=== PATIENT | male | born 1985 | race Caucasian/White ===

== ENCOUNTER 2019-05-17 11:26 | Inpatient (IN) | payer OTHER ==
[~2019-05-17] VITALS: Ht 193 cm; Wt 85.4 kg
[2019-06-09] VITALS (15 sets, daily range): BP systolic 111–133; BP diastolic 57–88; PULSE 66–99; TEMP 97.7–98.6
[2019-06-09 09:46] LABS: BASO % 0.8 % (0.0-2.0); EOS # 0.1 (0.0-0.7); EOS % 2.6 % (0-4.0); GRAN # 2.7 (1.4-6.5); GRAN % 70.1 % (42.2-75.2); HEMATOCRIT 41.3 % (42.0-52.0); HEMOGLOBIN 14.3 g/dl (13.5-18.0); LYMPH # 0.8 (1.2-3.4); LYMPH % 20.8 % (20.0-51.0); MEAN CELL VOLUME 84 fl (80.0-100.0); MEAN CORPUSCULAR HEMOGLOBIN 29 pg (27.0-31.0); MEAN CORPUSCULAR HGB CONC 35 g/dl (33.0-37.0); MEAN PLATELET VOLUME 10.5 fl (7.4-10.4); MONO # 0.2 (0.1-0.6); MONO % 5.7 % (1.7-9.3); PLATELET COUNT 59 K/mm3 (130-400); REDCELL DISTRIBUTION WIDTH-CV 13.7 % (11.5-14.5)
--- NOTE | 2019-06-09 10:05 | NUR ---
Platelet transfusion #1 started to 18 guage right forearm site at 60ml/hr. Pt tolerating without signs and symptoms of reaction. Will continue to monitor. in room. Nurse at bedside. Call light within reach.
--- NOTE | 2019-06-09 10:20 | NUR ---
Platelet transfusion #1 rate increased to wide open. No signs or symptoms of transfusion reaction. Will continue to monitor.
[2019-06-09] MEDS ORDERED: ELIQUIS 5MG PO (10:26)
--- NOTE | 2019-06-09 10:30 | NUR ---
Platlet transfusion #1 complete. VSS. No signs/symptoms of reaction. OR pest control specialist at bedside. Call light within reach.
--- NOTE | 2019-06-09 10:40 | NUR ---
Pt to OR via cart with Nena CORNELIUS.
[2019-06-09 17:03] LABS: MEAN CELL VOLUME 86 fl (80.0-100.0); MEAN CORPUSCULAR HGB CONC 34 g/dl (33.0-37.0); MEAN PLATELET VOLUME 10.4 fl (7.4-10.4); PLATELET COUNT 154 K/mm3 (130-400); RED BLOOD COUNT 4.12 M/mm3 (4.20-5.60)
[2019-06-09 17:10] LABS: HEMATOCRIT 35.3 % (42.0-52.0); MEAN CORPUSCULAR HEMOGLOBIN 29 pg (27.0-31.0)
[2019-06-09 17:12] LABS: HEMOGLOBIN 12.1 g/dl (13.5-18.0)
--- NOTE | 2019-06-09 18:30 | NUR ---
Patient has been resting well since getting back from surgery. Stated having some pain and pressure from his abdomen to his upper shoulders. Explained this is part of the surgery from the air they use during surgery in the abdomen. He verbalized understanding. He is tolerating clear liquids without nausea. His was here but went home for the night. Afternoon results from [facility] called to Dr Loco. No other changes at this time. Call light within reach.
[2019-06-10 04:05] VITALS: BP 112/59; PULSE 83; TEMP 98.4
[2019-06-10 05:46] LABS: BASO % 0.4 % (0.0-2.0); EOS % 0.1 % (0-4.0); GRAN # 9.1 (1.4-6.5); GRAN % 79.6 % (42.2-75.2); HEMOGLOBIN 11.3 g/dl (13.5-18.0); LYMPH # 1.2 (1.2-3.4); LYMPH % 10.5 % (20.0-51.0); MEAN CELL VOLUME 86 fl (80.0-100.0); MEAN CORPUSCULAR HEMOGLOBIN 29 pg (27.0-31.0); MEAN CORPUSCULAR HGB CONC 34 g/dl (33.0-37.0); MEAN PLATELET VOLUME 10.2 fl (7.4-10.4); MONO % 9.1 % (1.7-9.3); PLATELET COUNT 189 K/mm3 (130-400); RED BLOOD COUNT 3.91 M/mm3 (4.20-5.60); REDCELL DISTRIBUTION WIDTH-CV 13.8 % (11.5-14.5)
[2019-06-10 05:47] LABS: HEMATOCRIT 33.5 % (42.0-52.0)
--- NOTE | 2019-06-10 05:54 | NUR ---
Patient has rested well throughout the night. States his abdomen feels "okay", but he has pain in his neck and shoulders. Patient educated about gas pains post surgery. States understanding. Denies the need for PRN pain medication. Palencia catheter draining slightly darkened yellow urine. Good output noted. Fluids capped as patient is tolerating fluids well. 5 Lap sites noted to be covered with bandaids. CDI. Will continue to monitor.
[2019-06-10 05:55] LABS: CALCIUM 8.3 mg/dL (8.4-10.2); CREATININE, serum 0.78 (0.66-1.25); POTASSIUM 4.1 mmol/L (3.4-5.0)
[2019-06-10 07:33] VITALS: BP 118/68; PULSE 76; TEMP 98
--- NOTE | 2019-06-10 10:15 | NUR ---
Initial visit; Patient thanked [employer] Bench [employer] for looking in on him and offering God's blessings.
--- NOTE | 2019-06-10 11:49 | NUR ---
SABRA met with the patient and his , Melina (ph#[phone]), to discuss discharge plan. The patient lives on [address] with his and two children. He reports independence with ADLs and does not have any DME. The patient's see Captain Shaikh at the [facility] for primary care and he receives his medications at [facility]. He reports no difficulties obtaining his meds. The patient does not have advanced directives completed, but he was interested in obtaining a form for DPOA-HC. SABRA provided. The patient plans to return home with his family upon discharge. No additional needs at this time.
[2019-06-10 12:24] VITALS: BP 121/75; PULSE 82; TEMP 97.7
[2019-06-10 16:24] VITALS: BP 126/72; PULSE 78; TEMP 97.8
--- NOTE | 2019-06-10 18:00 | NUR ---
Patient has been doing well today. Having some pain and cramping to abdomen when getting up and moving. No complaints of nausea. He continues to pass flatus. He stated the roxicodone helped and he is planning to take it at bedtime. Talha discontinued this am. Patient has been voiding without issues. No other changes at this time. Call light within reach.
[2019-06-10 19:26] VITALS: BP 125/74; PULSE 76; TEMP 97.9
[2019-06-10 23:51] VITALS: BP 116/73; PULSE 69; TEMP 97.8
[2019-06-11 04:31] VITALS: BP 118/61; PULSE 59; TEMP 97.6
--- NOTE | 2019-06-11 04:42 | NUR ---
Patient rested well throughout the night. Requested Oxycodone 10mg for abdominal pain. This was administered and relief noted. Bandaids covering 5 lab sites to abdomen. CDI. Patient ambulates independently. Utilizes urinal for urination. Denies any further needs. Will continue to monitor.
[2019-06-11 07:20] VITALS: BP 122/69; PULSE 71; TEMP 98
[2019-06-11 07:49] LABS: BASO # 0.1 (0.0-0.2); BASO % 0.7 % (0.0-2.0); EOS # 0.2 (0.0-0.7); GRAN % 70.5 % (42.2-75.2); LYMPH # 1.4 (1.2-3.4); LYMPH % 19.1 % (20.0-51.0); MEAN CELL VOLUME 87 fl (80.0-100.0); MEAN CORPUSCULAR HEMOGLOBIN 29 pg (27.0-31.0); MEAN CORPUSCULAR HGB CONC 33 g/dl (33.0-37.0); MEAN PLATELET VOLUME 10.3 fl (7.4-10.4); MONO # 0.5 (0.1-0.6); MONO % 6.4 % (1.7-9.3); PLATELET COUNT 241 K/mm3 (130-400); RED BLOOD COUNT 3.82 M/mm3 (4.20-5.60); REDCELL DISTRIBUTION WIDTH-CV 14.2 % (11.5-14.5)
[2019-06-11 07:50] LABS: HEMATOCRIT 33.4 % (42.0-52.0)
--- NOTE | 2019-06-11 08:54 | NUR ---
Patient alert and oriented, answers questions appropriately. See assessment. Abdomen soft, non tender, non distended. Bowel sounds active x4 quads. +Flatus. +Bowel movement. Lap sites to abdomen with edges well approximated, no redness or drainage noted. Post op exercises reviewed with patient. No c/o at this time.
[2019-06-11] MEDS ORDERED: TYLENOL 500MG500 MG PO (10:00)
[2019-06-11] MEDS ORDERED: ROXICODONE 55 MG/TAB PO (10:02)
--- NOTE | 2019-06-11 11:29 | NUR ---
Discharge instructions reviewed with patient and spouse, verbalized understanding. Discharged ambulatory to auto/home with family at 1130.
== END 2019-06-11 11:30 | disposition home or self-care (01) | DRG 801 ==
LOC: INPTSU 06-09 08:48 → SURG 06-09 10:30
PROVIDERS: ADMIT Surgery
PROC: 8E0W4CZ Robotic Assisted Procedure of Trunk Region, Percutaneous Endoscopic Approach (ICD-10-PCS; 2019-06-09)
PROC: 6A550Z2 Pheresis of Platelets, Single (ICD-10-PCS; 2019-06-09)
PROC: 07TP4ZZ Resection of Spleen, Percutaneous Endoscopic Approach (ICD-10-PCS; principal; 2019-06-09 10:30)
DX: R16.1 Splenomegaly, not elsewhere classified (principal); D69.6 Thrombocytopenia, unspecified; Z86.711 Personal history of pulmonary embolism; Z79.01 Long term (current) use of anticoagulants
CPT/HCPCS: A4314; A9284; J0690; J1100; J1170; J1650; J1885; J2175; J2250; J2405; J2704; J3010; J7030; J7120; P9035

== ENCOUNTER → 2019-06-16 | Outpatient (CLI) | payer OTHER ==
[~2019-06-16] MED LIST: ELIQUIS 5MG PO; ROXICODONE 55 MG/TAB PO; TYLENOL 500MG500 MG PO
[2019-06-16 11:12] LABS: HEMATOCRIT 38.7 % (42.0-52.0); HEMOGLOBIN 13.1 g/dl (13.5-18.0); MEAN CELL VOLUME 86 fl (80.0-100.0); MEAN CORPUSCULAR HEMOGLOBIN 29 pg (27.0-31.0); MEAN CORPUSCULAR HGB CONC 34 g/dl (33.0-37.0); MEAN PLATELET VOLUME 9.1 fl (7.4-10.4); PLATELET COUNT 473 K/mm3 (130-400); RED BLOOD COUNT 4.48 M/mm3 (4.20-5.60)
== END ==
LOC: COL.LAB 10:42
PROVIDERS: Surgery
DX: R16.1 Splenomegaly, not elsewhere classified (principal)